=== PATIENT | male | born 1975 | race Caucasian/White ===

== ENCOUNTER 2021-11-15 22:17 | Emergency (ER) | payer MEDICARE, MEDICAID, SELFPAY ==
--- NOTE | ~2021-11-15 | CT_ITS ---
EXAMINATION: CT brain wo con DATE: 11/16/2021 00:00 INDICATION: Seizure. TECHNIQUE: Computed tomography (CT) of the head was performed without intravenous contrast. The mA wa s adjusted according to patient size. Iterative reconstruction technique was employed. The dose-lengt h product was 529.67 mGy-cm. COMPARISON: None FINDINGS: There are surgical changes of left-sided craniotomy. There is chronic encephalomalacia in l eft temporal lobe. 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 There is no intracrani al hemorrhage, acute infarction, or abnormal intracranial mass lesion. There is mild ex vacuo dilatat ion of left lateral ventricle. There is 4 mm leftward midline shift. The mastoid air cells are normal . There is chronic deformity of the external ears. There is mild mucosal thickening in the ethmoid si nuses. There is a radiopaque foreign body anterior to right ocular globe. IMPRESSION: 1. Chronic encephalomalacia in left temporal and left frontal lobes. Reviewed, dictated and finalized at location A.
[2021-11-15 22:30] VITALS: BP 121/74; PULSE 86; RESP 20; TEMP 36.2; O2SAT 96
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
[2021-11-15] MEDS: LIDOCAINE HCL 1% LOCAL INJ 10 ML VIAL (23:00)
[2021-11-15 23:22] VITALS: BP 121/82; PULSE 77; RESP 20; TEMP 37; O2SAT 95
[2021-11-15] MEDS: SULFAMETHOXAZOLE/TRIMETHOPRIM 800/160 MG DS TABLET 1 TAB PO (23:56)
[2021-11-15] MEDS: TETANUS,DIPHTHERIA,AC PERTUSSIS ADULT 0.5 ML (ADACEL) IM (23:57)
== END 2021-11-16 00:47 | disposition home or self-care (01) ==
PROVIDERS: Emergency Provider Internal Medicine Critical Care Medicine
DX: S31.821A Laceration without foreign body of left buttock, initial encounter (principal); G40.909 Epilepsy, unspecified, not intractable, without status epilepticus; T14.8XXA Other injury of unspecified body region, initial encounter; W19.XXXA Unspecified fall, initial encounter
CPT/HCPCS: 12001; 70450; 90471; 90715; 99284; A9270